=== PATIENT | male | born 1965 | race Caucasian/White ===

== ENCOUNTER 2020-06-16 15:03 | Emergency (ER) | payer BC ==
[2020-06-16 15:14] VITALS: RESP 18
[2020-06-16] MEDS ORDERED: OXYMETAZOLINE 0.05% NASL SPRAY 1 SPRAY BOTTLE NASAL STA (15:34)
[2020-06-16] MEDS ORDERED: LIDOCAINE/EPINEPHR/TETRACAINE 5 ML BOTTLE TOPICAL ONE (15:34)
[2020-06-16] MEDS ORDERED: SODIUM CHLORIDE 0.9% 1,000 ML IV ONE (15:34)
[2020-06-16 16:16] LABS: Basophils % (A) 0 %; Eosinophils # (A) 0.4 k/uL (0-0.7); Eosinophils % (A) 6 %; HCT 39.3 % (39.0-53.0); HGB 13.6 gm/dL (13.0-17.5); Lymphocytes # (A) 0.9 k/uL (1.0-4.8); Lymphocytes % (A) 13 %; MCH 33.7 pg (25.0-35.0); MCHC 34.6 g/dL (31.0-37.0); MCV 97.4 fL (80.0-100.0); Mean Platelet Volume 7.5; Monocytes # (A) 0.4 k/uL (0-1.0); Monocytes % (A) 5 %; Neutrophils # (A) 5.2 k/uL (1.3-7.7); Neutrophils % (A) 73 %; Platelet Count 170 k/uL (150-450); RBC 4.04 m/uL (4.30-5.90); RDW 12.2 % (11.5-15.5); WBC 7.2 k/uL (3.8-10.6)
[2020-06-16 16:49] VITALS: BP 143/75; PULSE 63; TEMP 98.2
--- NOTE | 2020-06-16 16:49 | ED ---
ENT HPI - General Chief complaint: ENT Stated complaint: epistaxis Time Seen by Provider: 06/16/20 15:11 Source: EMS, RN notes reviewed, old records reviewed Mode of arrival: EMS Limitations: no limitations - History of Present Illness Initial comments: 54-year-old male presents emergency department today for concern for nosebleed. Nosebleed started when he was at work bent over. Patient states that he's never had a history of nosebleeds in the past. He denies any history of blood thinners besides aspirin. He reports that he does take blood pressure medications been compliant. He denies any other complaints. - Related Data Home Medications Medication Instructions Recorded Confirmed Aspirin 81 mg PO DAILY 06/20/14 09/26/16 Lisinopril 20 mg PO QAM 06/20/14 09/29/16 Metoprolol Succinate (ER) [Toprol 25 mg PO QAM 06/20/14 09/29/16 XL] Omeprazole [PriLOSEC] 20 mg PO DAILY 06/20/14 09/29/16 Previous Rx's Medication Instructions Recorded Sodium Chloride [Saline Nasal 1 spray EA NOSTRIL TID #1 bottle 06/16/20 [place]] Allergies Allergy/AdvReac Type Severity Reaction Status Date / Time No Known Allergies Allergy Verified 06/16/20 15:14 Review of Systems ROS Statement: Those systems with pertinent positive or pertinent negative responses have been documented in the HPI. ROS Other: All systems not noted in ROS Statement are negative. Past Medical History Past Medical History: GERD/Reflux, Hyperlipidemia, Hypertension Additional Past Medical History / Comment(s): UMBILICAL HERNIA History of Any Multi-Drug Resistant Organisms: None Reported Past Surgical History: Back Surgery, Hernia Repair, Orthopedic Surgery Additional Past Surgical History / Comment(s): LEFT KNEE ARTHROSCOPY, LEFT INGINUAL HERNIA,umbilical hernia repair Past Anesthesia/Blood Transfusion Reactions: No Reported Reaction Past Psychological History: No Psychological Hx Reported Smoking Status: Former smoker Past Alcohol Use History: Heavy Past Drug Use History: None Reported - Past Family History Mother Additional Family Medical History / Comment(s): still living at age 93 Father Family Medical History: No Reported History General Exam - General Exam Comments Initial Comments: 54-year-old male. Alert and oriented. No distress. Limitations: no limitations General appearance: alert, in no apparent distress Head exam: Present: atraumatic Eye exam: Present: normal appearance, PERRL, EOMI. Absent: scleral icterus, conjunctival injection, periorbital swelling ENT exam: Present: normal exam, normal oropharynx, mucous membranes moist, other (Patient has evidence of anterior epistaxis on the left near. Bleeding is well-controlled.) Neck exam: Present: normal inspection. Absent: tenderness, meningismus, lymphadenopathy Respiratory exam: Present: normal lung sounds bilaterally. Absent: respiratory distress, wheezes, rales, rhonchi, stridor Cardiovascular Exam: Present: regular rate, normal rhythm, normal heart sounds. Absent: systolic murmur, diastolic murmur, rubs, gallop, clicks GI/Abdominal exam: Present: soft, normal bowel sounds. Absent: distended, tenderness, guarding, rebound, rigid Extremities exam: Present: normal inspection, full ROM, normal capillary refill. Absent: tenderness, pedal edema, joint swelling, calf tenderness Back exam: Present: normal inspection Neurological exam: Present: alert, oriented X3, CN II-XII intact Psychiatric exam: Present: normal affect, normal mood Skin exam: Present: warm, dry, intact, normal color. Absent: rash Course Vital Signs 06/16/20 06/16/20 06/16/20 15:11 16:48 17:05 Temperature 97.0 F L 98.2 F 98.2 F Pulse Rate 78 63 63 Respiratory 18 18 18 Rate Blood Pressure 153/90 143/75 143/75 O2 Sat by Pulse 98 98 Oximetry Medical Decision Making - Medical Decision Making 54-year-old male process returns today with episode of epistaxis from the left ear. Patient had nasal clamp applied and after was removed bleeding controlled. Is given Afrin spray. He is kept in the emergency department for an hour and able to ambulate and no further bleeding was noted. I discussed Patient needs follow-up with primary care doctor about the Patient on Afrin spray nasal saline spray. Discusses this further bleeding to use the clamp and to return if there is any other alarming signs or symptoms. - Lab Data Result diagrams: 06/16/20 15:52 Lab Results 06/16/20 Range/Units 15:52 WBC 7.2 (3.8-10.6) k/uL RBC 4.04 L (4.30-5.90) m/uL Hgb 13.6 (13.0-17.5) gm/dL Hct 39.3 (39.0-53.0) % MCV 97.4 (80.0-100.0) fL MCH 33.7 (25.0-35.0) pg MCHC 34.6 (31.0-37.0) g/dL RDW 12.2 (11.5-15.5) % Plt Count 170 (150-450) k/uL Neutrophils % 73 % Lymphocytes % 13 % Monocytes % 5 % Eosinophils % 6 % Basophils % 0 % Neutrophils # 5.2 (1.3-7.7) k/uL Lymphocytes # 0.9 L (1.0-4.8) k/uL Monocytes # 0.4 (0-1.0) k/uL Eosinophils # 0.4 (0-0.7) k/uL Basophils # 0.0 (0-0.2) k/uL Disposition Clinical Impression: Anterior epistaxis Disposition: HOME SELF-CARE Condition: Good Instructions (If sedation given, give patient instructions): Nosebleed (ED) Additional Instructions: Patient should use nasal saline spray to and use a humidifier in the bedroom at night to help prevent any further nosebleeds. Recommended follow-up with ENT if symptoms continue to persist. Patient should apply nasal clamp at home for 20 minutes there is any further nosebleeds. Follow-up with PCP. Prescriptions: Sodium Chloride [Saline Nasal [place]] 1 spray EA NOSTRIL TID #1 bottle Is patient prescribed a controlled substance at d/c from ED?: No Referrals: Emanuel Roy DO [Primary Care Provider] - 1-2 days Time of Disposition: 16:48
== END 2020-06-16 17:06 | disposition home or self-care (01) ==
LOC: EC 15:03
DX: K21.9 Gastro-esophageal reflux disease without esophagitis (principal); I10 Essential (primary) hypertension; E78.5 Hyperlipidemia, unspecified; Z79.82 Long term (current) use of aspirin; Z79.899 Other long term (current) drug therapy; Z87.891 Personal history of nicotine dependence; R04.0 Epistaxis
CPT/HCPCS: 30901; 36415; 85025; 96372; 99284

== ENCOUNTER → 2024-06-26 | Outpatient (CLI) | payer BC ==
[~2024-06-26] MED LIST: ATROPINE SULFATE 0.1 MG/ML 10ML SYRINGE ONE; DOBUTamine DRIP for NUC MED 500 MG/250 ML BAG IV ONE
== END | disposition home or self-care (01) ==
LOC: RADNMMAIN 09:15
PROVIDERS: ATTEND Family Medicine
DX: R94.31 Abnormal electrocardiogram [ECG] [EKG] (principal)
CPT/HCPCS: 93351